=== PATIENT | male | born 1990 | race African-American/Black ===

== ENCOUNTER 2019-01-20 03:11 | Emergency (ER) | payer SELFPAY ==
[~2019-01-20] VITALS: Ht 180.3 cm; Wt 70.3 kg
[2019-01-20] MEDS ORDERED: oxyCODONE/APAP (5/325 MG) 1 UDTAB TABLET PO ONE (03:30)
[2019-01-20] MEDS ORDERED: oxyCODONE/APAP (5/325 MG) 1 UDTAB TABLET ONE (03:32)
--- NOTE | 2019-01-20 03:45 | NUR ---
DISCUSSED CASE WITH DR. ROSAS. TREATMENT ORDERS CARRIED OUT. PATIENT EDUCATION PERFORMED.
[2019-01-20 03:48] VITALS: BP 112/60
== END 2019-01-20 03:49 | disposition home or self-care (01) ==
LOC: ER 03:18
DX: G43.909 Migraine, unspecified, not intractable, without status migrainosus (principal); F17.200 Nicotine dependence, unspecified, uncomplicated; Z88.0 Allergy status to penicillin